=== PATIENT | female | born 1985 | race African-American/Black ===

== ENCOUNTER 2017-05-03 22:33 | Emergency (ER) | payer BC ==
[2017-05-03] MEDS ORDERED: Lidocaine 1% 20 ML MDV ONE (22:50)
[2017-05-03] MEDS ORDERED: Ibuprofen 800 MG TAB ONE (23:12)
== END 2017-05-03 23:15 | disposition home or self-care (01) ==
LOC: NAV ERS 22:33
DX: L03.011 Cellulitis of right finger (principal); I10 Essential (primary) hypertension
CPT/HCPCS: 10060; J2001

== ENCOUNTER 2017-05-05 14:55 | Emergency (ER) | payer BC ==
[2017-05-05] MEDS ORDERED: Acetaminophen/Codeine 30-300mg Tablet ONE (15:32)
== END 2017-05-05 15:38 | disposition home or self-care (01) ==
LOC: NAV ERS 14:55
DX: L03.011 Cellulitis of right finger (principal)
CPT/HCPCS: 99283

== ENCOUNTER 2017-05-06 01:51 | Emergency (ER) | payer BC ==
[2017-05-06] MEDS ORDERED: HYDROcodone/Acetaminophen 10/325 mg Tablet ONE (02:19)
== END 2017-05-06 02:25 | disposition home or self-care (01) ==
LOC: NAV ERS 01:51
DX: L03.011 Cellulitis of right finger (principal); Z79.891 Long term (current) use of opiate analgesic
CPT/HCPCS: 10060; 87070; 87077; 87186; 87205

== ENCOUNTER 2019-05-13 06:47 | Emergency (ER) | payer BC, OTHER ==
[2019-05-13] MEDS ORDERED: Ondansetron ODT 4 MG TAB ONE (07:09)
== END 2019-05-13 08:19 | disposition home or self-care (01) ==
LOC: NAV ERS 06:47
DX: E86.0 Dehydration (principal); R11.2 Nausea with vomiting, unspecified; R19.7 Diarrhea, unspecified
CPT/HCPCS: 99283; Q0162

== ENCOUNTER 2019-12-21 18:31 | Emergency (ER) | payer OTHER ==
[2019-12-21] MEDS ORDERED: Boostrix 0.5 ML VIAL ONE (18:43)
[2019-12-21] MEDS ORDERED: Ibuprofen 200 MG TAB ONE (18:54)
[2019-12-21] MEDS ORDERED: Triple Antibiotic Oint 1 GM Packet ONE (18:54)
== END 2019-12-21 19:05 | disposition home or self-care (01) ==
LOC: NAV ERS 18:31
DX: T25.222A Burn of second degree of left foot, initial encounter (principal); G43.909 Migraine, unspecified, not intractable, without status migrainosus; X11.8XXA Contact with other hot tap-water, initial encounter
CPT/HCPCS: 16020; 90715

== ENCOUNTER 2020-11-25 20:07 | Emergency (ER) | payer OTHER ==
[2020-11-25] MEDS ORDERED: Ibuprofen 200 MG TAB ONE (21:49)
[2020-11-27 01:25] LABS: SARS-CoV-2 PCR by NAA DETECTED (NotDetected)
== END 2020-11-25 21:59 | disposition home or self-care (01) ==
LOC: NAV ERS 20:07
DX: U07.1 COVID-19 (principal)
CPT/HCPCS: 99283; U0003; U0005

== ENCOUNTER 2020-11-29 12:38 | Emergency (ER) | payer OTHER ==
[2020-11-29 13:09] LABS: Bilirubin Negative (Negative); Blood, Urine Negative (Negative); Clarity Slightly Cloudy (Clear); Glucose, Urine (Dipstick) Negative (Negative); Ketone, Urine Negative (Negative); Leukocyte Negative (Negative); Nitrite Negative (Negative); Protein, Urine (Dipstick) Negative (Neg-Trace); Specific Gravity, Urine 1.015 (1.005-1.030); Urobilinogen 0.2 mg/dL (Less than 2); pH, Urine 6.5 (5.0-9.0)
== END 2020-11-29 13:40 | disposition home or self-care (01) ==
LOC: NAV ERS 12:38
DX: U07.1 COVID-19 (principal); M54.5 Low back pain; R10.30 Lower abdominal pain, unspecified
CPT/HCPCS: 81003; 99284